=== PATIENT | female | born 1950 | race Caucasian/White ===

== ENCOUNTER 2019-09-11 17:37 | Emergency (ER) | payer OTHER ==
[2019-09-11 18:14] VITALS: BP 141/75
--- NOTE | 2019-09-11 19:27 | UC ---
Minor Trauma HPI - HPI Summary HPI Summary: 68 yo female fell forward on slight incline yesterday injury to right forehead and chest no LOC no neck pain no headache main concern is right rib pain - History of Current Complaint Chief Complaint: UCUpperExtremity Stated Complaint: S/P FALL, RIB INJURY Time Seen by Provider: 09/11/19 19:07 Hx Obtained From: Patient Onset/Duration: Sudden Onset, Lasting Hours Onset Of Pain: Immediate Severity Initially: Moderate Severity Currently: Moderate Pain Intensity: 5 Pain Scale Used: 0-10 Numeric Mechanism Of Injury: Fall From A Standing Position Aggravating Factor(s): Coughing, Deep Breaths Alleviating Factor(s): Rest Associated Signs And Symptoms: Positive: Ecchymosis, Swelling Body - Head: 1 - contusion 2 - ecchymosis 3 - tenderness - Risk Factors Penetrating Injury Risk Factors: Negative - Allergies/Home Medications Allergies/Adverse Reactions: Allergies Allergy/AdvReac Type Severity Reaction Status Date / Time No Known Allergies Allergy Verified 09/11/19 17:59 Home Medications: Home Medications Ibuprofen TAB* [Advil TAB*] 200 mg PO Q6H PRN 09/11/19 [History Confirmed ] Sertraline* [Zoloft*] 100 mg PO BEDTIME 09/11/19 [History Confirmed 09/11/19] Thyroid TAB (NF) [Thyroid TAB 90 MG(NF)] 90 mg PO DAILY 09/11/19 [History Confirmed 09/11/19] buPROPion HCL [Bupropion Xl] 300 mg PO DAILY 09/11/19 [History Confirmed ] lamoTRIgine [Lamictal] 200 mg PO DAILY 09/11/19 [History Confirmed 09/11/19] PMH/Surg Hx/FS Hx/Imm Hx Endocrine History: Thyroid Disease - Surgical History Surgical History: Yes Surgery Procedure, Year, and Place: Mastectomy. Hammer toe B/L twice - Family History Known Family History: Positive: Hypertension - Social History Alcohol Use: None Substance Use Type: None Smoking Status (MU): Former Smoker Review of Systems All Other Systems Reviewed And Are Negative: Yes Constitutional: Positive: Negative Skin: Positive: Bruising Eyes: Positive: Negative ENT: Positive: Negative Respiratory: Positive: Negative Cardiovascular: Positive: Chest Pain Gastrointestinal: Positive: Negative Genitourinary: Positive: Negative Motor: Positive: Negative Neurovascular: Positive: Negative Musculoskeletal: Positive: Negative Neurological/Mental Status: Positive: Negative Psychological: Positive: Negative Physical Exam Triage Information Reviewed: Yes Appearance: Well-Appearing, No Pain Distress, Well-Nourished Vital Signs: Initial Vital Signs Temp 99.2 F 09/11/19 18:06 Pulse 67 09/11/19 18:06 Resp 16 09/11/19 18:06 BP 141/75 09/11/19 18:06 Pulse Ox 96 09/11/19 18:06 Vital Signs Reviewed: Yes Eyes: Positive: Conjunctiva Clear ENT: Positive: Hearing grossly normal. Negative: Nasal congestion, Nasal drainage, Tonsillar swelling, Tonsillar exudate, Hoarse voice, Sinus tenderness Dental Exam: Normal Neck: Positive: Supple, Nontender Respiratory: Positive: Lungs clear, Normal breath sounds, No respiratory distress, No accessory muscle use. Negative: Chest non-tender Cardiovascular: Positive: RRR Musculoskeletal: Positive: ROM Intact, No Edema Neurological: Positive: Alert Psychological Exam: Normal Skin Exam: Other - see image Diagnostics - Radiology No standard instances Radiology Interpretation Completed By: Radiologist Summary of Radiographic Findings: fx right 8th rib ? acute Minor Trauma Course/Dx - Differential Dx/Diagnosis Provider Diagnosis: Forehead contusion, Traumatic black eye of right side, Right rib fracture Discharge ED - Sign-Out/Discharge Documenting (check all that apply): Patient Departure All imaging exams completed and their final reports reviewed: No - Discharge Plan Condition: Stable Disposition: HOME Patient Education Materials: Rib Fracture (ED), Black Eye (ED) Referrals: Non Staff,Doctor [Primary Care Provider] - Additional Instructions: The offical XR report is pending You can call [phone] tomorrow late morning for the official report deep breath ever hour while awake tyleno or aleve if needed for pain - Billing Disposition and Condition Condition: STABLE Disposition: Home
--- NOTE | 2019-09-12 08:18 | UC ---
- Progress Note Progress Note: chest xray report : IMPRESSION: #. Subtle contour irregularity at the anterolateral segment of the RIGHT ninth rib may reflect a healed fracture or a nondisplaced acute fracture. #. Negative for pneumothorax. R0 Course/Dx - Diagnoses Provider Diagnoses: Forehead contusion, Traumatic black eye of right side, Right rib fracture Discharge ED - Sign-Out/Discharge Documenting (check all that apply): Patient Departure All imaging exams completed and their final reports reviewed: Yes - Discharge Plan Condition: Stable Disposition: HOME Patient Education Materials: Black Eye (ED), Rib Fracture (ED) Referrals: Non Staff,Doctor [Primary Care Provider] - Additional Instructions: The offical XR report is pending You can call [phone] tomorrow late morning for the official report deep breath ever hour while awake tylenol or ibuprofen if needed for pain recheck with your MD in 2-3 weeks if not improved - Billing Disposition and Condition Condition: STABLE Disposition: Home
== END 2019-09-11 20:07 | disposition home or self-care (01) ==
LOC: UCCORT 17:37
DX: S22.31XA Fracture of one rib, right side, initial encounter for closed fracture (principal); S00.11XA Contusion of right eyelid and periocular area, initial encounter; S00.83XA Contusion of other part of head, initial encounter; E07.89 Other specified disorders of thyroid; Z79.899 Other long term (current) drug therapy; Z87.891 Personal history of nicotine dependence; W19.XXXA Unspecified fall, initial encounter; Y92.9 Unspecified place or not applicable
CPT/HCPCS: 99201; G0463